=== PATIENT | female | born 1965 | race Caucasian/White ===

== ENCOUNTER 2022-12-22 09:23 | Outpatient (CLI) | payer BC, SELFPAY ==
[2022-12-22 10:08] LABS: SARS PCR* Negative SARS-CoV-2 (Negative)
== END 2022-12-22 09:24 | disposition home or self-care (01) ==
LOC: NFLDREF 09:23
PROVIDERS: PCP Physician Assistant; Visit Provider Obstetrics & Gynecology
DX: Z20.822 Contact with and (suspected) exposure to COVID-19 (principal)
CPT/HCPCS: 87635

== ENCOUNTER 2022-12-23 07:28 | Day surgery (SDC) | payer BC, SELFPAY ==
[2022-12-23] VITALS (33 sets, daily range): BP systolic 111–139; BP diastolic 57–91; PULSE 61–86; RESP 12–18; TEMP 35.6–37.2; O2SAT 92–99; BMI 36.4
[2022-12-23] MEDS: LACTATED RINGERS 1000 ML 1,000 ML 100 ML IV ×2 (07:35→09:12)
[2022-12-23 08:07] LABS: Hemoglobin* 15.9 gm/dL (12.0-16.0)
[2022-12-23] MEDS: SODIUM CHLORIDE 0.9 % (FLUSH) 10 ML SYRINGE IVF (08:14)
--- NOTE | 2022-12-23 09:04 | P.PCN_ITS ---
Procedure Note Time Seen by Provider: 12: Date Seen: 12/23/22 Date of procedure: 12/23/22 Will [facility] bill your pro fee for this procedure?: Yes Procedure: Preoperative diagnosis: 57-year-old 3 para3 with pelvic organ prolapse who desires surgical treatment. Postoperative diagnosis: Same Procedure: Total vaginal hysterectomy,anterior and posterior repair. Anesthesia: Spinal, MAC Surgeon: Annmarie Kruse MD assistant director: Irma Contreras MD Second clinical lab assistant: ASHLEE Puentes EBL: 50 mL IV Fluid: 1700 mL Urine output: 200 mL, clear urine at the end of the procedure Drains: Lerner to gravity. Vaginal pack in place Specimen: Uterus with cervix to pathology Findings: On exam under anesthesia: Uterus is mid position, less than 8 week size. Prolapse: Grade 4 cystocele, grade 3 uterine prolapse, grade 1-2 rectocele primarily with in the vaginal canal. The perineal body is well supported.. Other: Tubes had been previously surgically removed. Ovaries were so small they could not be visualized from the vaginal canal. Procedure: Sandy was taken to the operating room where general anesthesia was found be adequate. She is placed in the dorsal lithotomy position and an exam under anesthesia performed with the findings stated above. She was then prepped and draped in a sterile manner. A Lerner catheter was placed. A weighted speculum was placed in the posterior aspect of the vaginal introitus. The cervix was grasped with a double toothed tenaculum and the cervix circumferentially injected dilute vasopressin, 20 units diluted in 50 mL of saline. A circumferential incision was made around the cervix with a scalpel. The posterior cul-de-sac was entered sharply with Montile scissors and a long weighted speculum was placed. The anterior vaginal mucosa was extremely difficult to id entify due to history of LEEP procedure and significant scarring as well as the grade 4 prolapse of the bladder making the bladder-cervix junction difficult to identify. The posterior peritoneum was entered 1st as above then my index finger was used to identify the anterior peritoneum by wrapping around the uterus from the posterior side. The peritoneum was grasped an with toothed forceps and the peritoneum entered sharply with Metzenbaum scissors. This opening was extended with blunt pressure and a Leslie retractor placed through the opening. Pedicles of the hysterectomy were formed using Paul clamps. All pedicles were Paul transfixed. The 1st pedicle was formed on the patient's left incorporating the uterosacral ligament. This was divided and Marino transfixed. These sutures were tagged with a small clamp. The right uterosacral ligament was grasped in the 1st right pedicle that pedicle was divided, Paul transfixed in the sutures held with a small Monse clamp. Sequential pedicles were then formed using Marino clamps, all pedicles were divided sharply and Paul transfixed. At the level of the cornea at the utero ovarian ligament ligament were cross-clamped with a Marino clamp and divided. The cornual pedicles were doubly suture ligated: 1st with an 0 Vicryl free tie followed by an 0 Vicryl stick tie in a fore and aft manner. All pedicles were noted to be hemostatic. A Becerril's culdoplasty was not performed. The long weighted speculum was removed and the short weighted speculum replaced in the vaginal introitus. The peritoneum was identified circumferentially and grasped with 2 Allis clamps.The peritoneum was closed using a 3-0 Vicryl in a purse-string manner. The weighted speculum removed. The vaginal cuff was re-approximated using 0 Vicryl sutures in a figure of X manner. The uterosacral pedicles were incorporated into each apex of the vaginal cuff. Excellent hemostasis was noted. Attention was turned to performing the anterior repair. Allis clamp was placed in the midline of the anterior vaginal mucosa approximately 1 cm under the urethral meatus. Two additional Allis clamps were placed 1 just superior to each apex of the vaginal cuff repair. 1% lidocaine with epinephrine was injected between the 2 Allis clamps just above the cuff and in the midline to the Allis that was placed below the urethral meatus. A horizontal incision was then made between the 2 Allis clamps just above the vaginal cuff. Is vaginal mucosa was undermined with the Metzenbaum scissors. The excess mucosa was grasped with a combination of Monet and Allis clamps. The underlying fascial tissue was mobilized from the vaginal mucosa using an open Ray-Lien sponge. Two 0 Vicryl interrupted sutures were used to grasp the lateral vaginal fascial tissue and tied together in the midline. The excess vaginal mucosa was then removed and the remaining vertical incision was re-approximated using 3-0 Vicryl in a running locked manner. Excellent hemostasis verified. Attention was turned to performing the posterior repair. An Allis clamp was placed at the apex of the posterior repair in the midline of the vaginal mucosa posteriorly, 2 Allis clamps were placed in the posterior introitus approximately 1 cm within the introitus. 1% lidocaine with epinephrine was instilled between the 2 horizontal clamps and in the midline to the apical clamp. A horizontal incision was made between the 2 most proximal Allis clamps and a horizontal midline incision was made from the apex clamp to the midline horizontal incision. The vaginal mucosa was then undermined with Metzenbaum scissors and the vaginal fascia was mobilized from the mucosa using a Ray-Lien sponge. The lateral vaginal fascia was then reapproximated using 2 0 Vicryl interrupted sutures. The excess mucosal tissue was removed and the remaining incision reapproximated using 3-0 Vicryl in a running locked manner. Hemostasis verified. A vaginal pack with Premarin cream was placed in the vaginal canal to be removed tomorrow morning by the physician. Sponge, lap and instrument counts were correct x2 at the end of the procedure and the patient was taken to the recovery room in stable condition. Prior to the procedure the patient received: 2g Ancef for antibiotic prophylaxis Surgeon: Annmarie Kruse MD
[2022-12-23] MEDS: CEFAZOLIN 2 GM INJ IVP (09:11)
--- NOTE | 2022-12-23 09:19 | W.ANESCHARGE ---
Anesthesia Charges Start Date/Time Anesthesia Start Date: 12/23/22 Anesthesia Start Time: 08:57 Stop Date/Time Anesthesia Stop Date: 12/23/22 Anesthesia Stop Time: 11:39 Summary Emergency: No
[2022-12-23] MEDS: 0.9 % SODIUM CHLORIDE 50 ml INJECTION (09:32)
[2022-12-23] MEDS: VASOPRESSIN 20 UNIT/ML INJ INJECTION (09:32)
--- NOTE | 2022-12-23 11:22 | P.GYNPRC_ITS ---
Procedure Note Date Seen: 12/23/22 Procedure Details: PREOPERATIVE DIAGNOSIS: Pelvic organ prolapse. POSTOPERATIVE DIAGNOSIS: Pelvic organ prolapse. PROCEDURE: Total vaginal hysterectomy. Anterior and posterior vaginal repairs. SURGEON: Aixa. GOVERNMENT PROPERTY INSPECTOR: Diane. ANESTHESIA: General endotracheal. COMPLICATIONS: None. ESTIMATED BLOOD LOSS: See operative report by Dr. Kruse. FINDINGS: Uterine prolapse. Large cystocele. Small rectocele. PROCEDURE NOTE: Please see the operative report by Dr. Kruse for full details of the procedure. I was asked to assist. I was scrubbed in for the entire procedure until closure of the posterior vaginal mucosa and perineoplasty. I provided assistance with visualization and retraction for the hysterectomy, closure of the vaginal cuff and the anterior and posterior vaginal repairs.
[2022-12-23] MEDS: ESTROGENS, CONJUGATED VAGINAL 0.625 MG/G CREAM 1 APPLIC TOPICAL (11:24)
[2022-12-23] MEDS: LACTATED RINGERS 1000 ML 1,000 ML 125 ML IV ×2 (12:01→12:30)
--- NOTE | 2022-12-23 13:07 | W.ANESCHARGE ---
Anesthesia Charges Start Date/Time Anesthesia Start Date: 12/23/22 Anesthesia Start Time: 08:57 Stop Date/Time Anesthesia Stop Date: 12/23/22 Anesthesia Stop Time: 11:39 Summary Emergency: No
[2022-12-23] MEDS: KETOROLAC 30 MG/ML inj IVP ×2 (14:07→20:05)
--- NOTE | 2022-12-23 14:29 | PC.NURSE ---
Pt pleasant, calm and cooperative during shift. Pt has had no pain and stable vital signs. Pt has Lerner catheter and has not ambulated thus far.
--- NOTE | 2022-12-23 17:48 | P.GYNPN_ITS ---
NURSE AIDE EVALUATOR - A/P Postoperative Procedures: Procedures Operation Date: 12/23/22 08:45 Actual Procedure Side Surgeon p Total Vaginal Hysterectomy, Anterior Repair, Posterior Repair Annmarie Drummond MD Time Spent With Patient Time: Total time spent is greater than 50% in coordination of care (as documented) at patient's floor/unit and/or counseling patient: Time with patient: less than 15 minutes NURSE AIDE EVALUATOR- PN:Subj Post-Op Subjective Time Seen by Provider: 17:48 Date Seen: 12/23/22 Post Operative Details: Subjective: Sandy is a 57-year-old 3 para 3 who is postop day 0 from a total vaginal hysterectomy, anterior/posterior repair for pelvic organ prolapse. She is doing well today. She states her pain is well controlled. She is tolerating regular diet. She denies nausea/vomiting. Her Lerner catheter and vaginal pack are in place. Her Lerner will be removed tomorrow in her bladder backfilled prior to removing her bladder to see if she is able to urinate. If she is unable to urinate her Lerner catheter will be replaced and I will see her on 12/25/2022 to backfill her bladder in see if she is able to urinate. Has had adequate urine output. She has been ambulating without difficulty. She is passing flatus. Objective: General: Pleasant, , well groomed woman in no acute distress. Vital signs: Per electronic medical record Heart: Regular rate and rhythm without gallop, rub or murmur. Chest: Clear to auscultation bilaterally. Abdomen: Soft, nontender, mildly distended. No CVA or flank tenderness. Extremities: No pain or edema Assessment: 57-year-old postoperative day# 0 from a total vaginal hysterectomy, anterior/posterior repair.. Plan: 1. Continue routine postop care. 2. Planning discharge home tomorrow. NURSE AIDE EVALUATOR-PN: Obj Exam Physical Exam: Vital signs: Temp Pulse Resp BP Pulse Ox O2 Del Method 97.6 F 74 16 119/57 L 95 12/23/22 17:00 12/23/22 17:00 12/23/22 17:00 12/23/22 17:00 12/23/22 17:00 12/23/22 17:00 Urinary Catheter Management: Urethral: Cath placed during this visit: yes Urethral indwelling: Yes Reason for continuing: invasive procedure Insertion date: 12/23/22 Insertion time: 09:35 NURSE AIDE EVALUATOR - PN: Obj Data Labs Labs: Laboratory Results - last 24 hr 12/23/22 12/23/22 07:59 07:59 Hgb 15.9 Blood Type A Negative Antibody Screen NEGATIVE
--- NOTE | 2022-12-23 19:45 | PM.GYNPNPO ---
INSTRUCTOR PROGRAMMABLE CONTROLLERS - A/P Assessment and plan (1) S/P vaginal hysterectomy: Problem details: w/ anterior/posterior repair Status: Acute Plan Vaginal bleeding after vaginal hysterectomy and prolapse repairs. No active bleeding. Suspect site of bleeding was low vagina due to upper packing being dry. Normal vital signs. Pre-op Hb quite high. Will observe for bleeding overnight. No packing placed after removal. Hb in AM. Postoperative Procedures: Procedures Operation Date: 12/23/22 08:45 Actual Procedure Side Surgeon p Total Vaginal Hysterectomy, Anterior Repair, Posterior Repair Annmarie Kruse MD Postoperative day: 0 Postoperative status: doing well Time Spent With Patient Time: Total time spent is greater than 50% in coordination of care (as documented) at patient's floor/unit and/or counseling patient: Time with patient: less than 15 minutes INSTRUCTOR PROGRAMMABLE CONTROLLERS- PN:Subj Post-Op Subjective Time Seen by Provider: 19:46 Date Seen: 12/23/22 Post Operative Details: Post-operative day number 0: status post vaginal hysterectomy and prolapse repair I was called by the patient's nurse and informed that Sandy was found to have a spot of blood the size of a dinner plate on the chux underneath her. She has vaginal packing in place. Sandy is feeling fine and has no complaints INSTRUCTOR PROGRAMMABLE CONTROLLERS-PN: Obj Exam Physical Exam: Vital signs: Temp Pulse Resp BP Pulse Ox O2 Del Method 97.6 F 71 16 126/70 95 12/23/22 17:00 12/23/22 17:00 12/23/22 18:17 12/23/22 17:00 12/23/22 17:00 12/23/22 17:00 Narrative: Gen: pleasant, NAD Vulva: vaginal packing noted at introitus. When removed, it becomes obvious that only the distal most end is saturated with blood. The inner portions of the pack are completely dry. Patient tolerates removal well. There is no active bleeding noted. Urinary Catheter Management: Urethral: Cath placed during this visit: yes Urethral indwelling: Yes Reason for continuing: invasive procedure Insertion date: 12/23/22 Insertion time: 09:35 INSTRUCTOR PROGRAMMABLE CONTROLLERS - PN: Obj Data Labs Labs: Laboratory Results - last 24 hr 12/23/22 12/23/22 07:59 07:59 Hgb 15.9 Blood Type A Negative Antibody Screen NEGATIVE
--- NOTE | 2022-12-23 19:54 | PC.NURSE ---
End of Shift ([id number]): Patient pleasant and cooperative. Afebrile. Denies pain. Up to chair with SBA. Lerner patent. Tolerating regular diet with no nausea. When patient got up to the chair there was about a dinner plate sized amount of blood on the chux pad and several drops of blood on the ground and on catheter strap, updated and in to see patient. Packing removed by and was not replaced.
[2022-12-23] MEDS: SODIUM CHLORIDE 0.9 % (FLUSH) 10 ML SYRINGE 5 ML IVF (22:19)
[2022-12-24] VITALS (9 sets, daily range): BP systolic 112–127; BP diastolic 56–69; PULSE 59–65; RESP 16–18; TEMP 36.1–36.7; O2SAT 95–98
[2022-12-24] MEDS: ACETAMINOPHEN 325 MG TABLET 1000 MG PO ×2 (04:03→10:54)
[2022-12-24 05:32] LABS: Hemoglobin* 13.9 gm/dL (12.0-16.0)
[2022-12-24] MEDS: LEVOTHYROXINE 50 MCG TABLET PO (06:24)
--- NOTE | 2022-12-24 07:31 | PC.NURSE ---
Pt is alert and oriented x3. Pt reports 2/10 pain at surgical site, pain managed with PRN tylenol. Pt denies chest pain, SOB, and N/V. Pt is up with SBA/A1 with walker and gait belt. Tolerating regular diet.?Lerner d/c?d at 0625 with input of 300 cc as per order catheter intact. Pt?did not urinate?within the 30 mins, updated.
--- NOTE | 2022-12-24 09:25 | ONC.NURNOTE ---
alert and oriented. up ad tom. ls clear. few bs. poss flatus. xin po. denies nausea. denies pain. 0900 voided 250cc light yellow urine. will bladder scan after next void. scant red blood on peripads. no clots. pt hoping to go home today. Dr. Contreras with pt at 0830.
[2022-12-24] MEDS: OXYCODONE 5 MG TABLET PO (10:51)
[2022-12-24] MEDS: DOCUSATE SODIUM 100 MG CAPSULE PO (10:55)
--- NOTE | 2022-12-24 11:11 | ONC.NURNOTE ---
showered. voided 200cc light yellow urine. 10cc residual. oxy 5mg and tylenol for pain at a 4. plan on giving Ibuprofen at lunchtime with food. Call placed to Dr. Contreras to discharge pt. scannt red blood on pad no clots. no nausea
--- NOTE | 2022-12-24 11:42 | P.DS_ITS ---
DS: Providers Provider Date Seen: 12/24/22 Primary care physician: SP Robbins Attending Physician on discharge: Irma Contreras MD Date of Discharge: 12/24/22 DS: Diagnosis Discharge Diagnosis (1) S/P vaginal hysterectomy: Status: Acute Problem details: w/ anterior/posterior repair (2) Pelvic organ prolapse quantification stage 4 cystocele: Status: Resolved Problem details: Grade 3 uterine prolapse, grade 1 rectocele FIXED ROUTE BUS OPERATOR-Discharge Summary Hospital Course Hospital Course Narrative: Patient is a 57 year old admitted on 12/23/2022 for surgical management of pelvic organ prolapse. Indication for surgery: Grade 4 cystocele, grade 3 uterine prolapse, grade 1 rectocele. Intraoperative findings were notable for same. She had an uncomplicated surgery. Postoperative course has been uneventful. Vitals have been stable. She has remained afebrile. Today, on postoperative day 1, she reports the pain is well controlled. She has been able to ambulate Without difficulty. She is tolerating regular diet. She is passing flatus. Lerner catheter has been removed, and she is voiding without difficulty with low postvoid residuals. She is experiencing a small amount of vaginal bleeding/spotting. Time Spent with Patient Time attestation: Total time spent providing and/or coordinating discharge services: Time spent: Less than 30 minutes FIXED ROUTE BUS OPERATOR - Exam Physical Exam: Vital signs: Temp Pulse Resp BP Pulse Ox O2 Del Method 97 F L 65 16 127/69 96 12/24/22 08:17 12/24/22 08:17 12/24/22 08:17 12/24/22 08:17 12/24/22 08:17 12/24/22 08:17 Constitutional: Constitutional: no acute distress Routine Respiratory Exam: Respiratory: Present CTA bilaterally Routine Cardiovascular Exam: Cardiovascular: Present RRR Routine Abdominal Exam: Abdominal: Present soft; Absent tenderness Routine Exam: Comments: Perineal repair intact. No active vaginal bleeding noted. FIXED ROUTE BUS OPERATOR - DS: Data Data Completed and Pending Labs on day of discharge: Labs from last 24 hours 12/24/22 05:05 Hgb 13.9 Procedures Procedures: Procedures Operation Date: 12/23/22 08:45 Actual Procedure Side Surgeon p Total Vaginal Hysterectomy, Anterior Repair, Posterior Repair Annmarie Drummond MD Discharge Plan Discharge Disposition: Home, Self-Care Discharging Surgeon: Irma Contreras Follow-Up Appointment: With Dr. Annmarie Kruse in 2-3 weeks. Prescriptions: New docusate sodium 100 mg Capsule 100 mg PO BID PRN (Reason: Constipation) 50 Days Qty: 100 0RF oxycodone 5 mg Tablet 5 mg PO 3XD PRN (Reason: Moderate Pain) Qty: 21 0RF ibuprofen 600 mg Tablet 600 mg PO Q6H PRN (Reason: Pain) Qty: 30 0RF Continued levothyroxine 50 mcg tablet 50 mcg PO DAILY sertraline 50 mg tablet 50 mg PO DAILY Discharge Diet: Regular Patient Instructions: Vaginal Hysterectomy (DC) Additional Instructions: Discharge instructions were reviewed with the patient including signs and symptoms of infection and home going medications ACTIVITY RESTRICTIONS: Lifting Restrictions: 20 pounds for 6 weeks Nothing vaginally for 6 weeks: no tampons or intercourse Do not drive while taking narcotic pain medication (oxycodone) No no strenuous, high impact or core exercises: 6 weeks. Off Work or School for 4 weeks There is no restriction for walking, walking up/down stairs or showering. Symptoms to report to doctor: * Bright red bleeding requiring a liner or pad * Pain not relieved by prescribed medication * Fever above 100.4 degrees Fahrenheit * A foul vaginal odor * Severe headache that doesn't improve after taking medications (Spinal headache) but improves when you lay down. * Upper abdominal pain (usually under ribs on the right side) * Decrease in urination or painful, frequent urinating * Chest pain * Shortness of breath * Tenderness or pain with redness and/swelling in the calf(s) of your leg FOLLOW UP APPOINTMENTS: 1. If you go home w/ a catheter in place due to urinary retention: return to clinic on 12/25/22 to have the catheter removed. 2. See Dr. Kruse in 2 and 6 weeks for postop exams. Forms: Work/School Release Follow-up: Annmarie Kruse MD [Staff Physician] - Bushra Gorman PA [Primary Care Provider] - Discharge Orders: Discharge Order (Routine); Ordered 12/24/22 Ordered By: Irma Contreras
[2022-12-24] MEDS: IBUPROFEN 600 MG TABLET PO (12:39)
== END 2022-12-24 13:00 | disposition home or self-care (01) ==
LOC: SS 11:55 → MEDSURG 11:59
PROVIDERS: PCP Physician Assistant; Visit Provider Obstetrics & Gynecology
PROC: 0TJB8ZZ Inspection of Bladder, Via Natural or Artificial Opening Endoscopic (ICD-10-PCS; CPT 57260; principal; 2022-12-23 08:45)
DX: N81.3 Complete uterovaginal prolapse (principal)
CPT/HCPCS: 58260; 57260; 00944; 36415; 85018; 86850; 86900; 86901; 88307; A9270; J0690; J1100; J1885; J2250; J2274; J2405; J2704; J3010; J7120